=== PATIENT | female | born 1965 | race Caucasian/White ===

== ENCOUNTER 2016-10-02 18:26 | Emergency (ER) | payer OTHER, MEDICAID ==
[2016-10-02 18:33] VITALS: BP 121/83
[2016-10-02] MEDS ORDERED: ACETAMINOPHEN 325 MG TABLET PO ONE (18:36)
--- NOTE | 2016-10-02 18:38 | ER Document Report ---
ED Medical Screen (RME) - General Chief Complaint: Hand Pain Stated Complaint: FINGER PAIN Time seen by provider: 18:34 Mode of Arrival: Ambulatory Information source: Patient Notes: 50 yo female presents to ed for pain in left middle finger will not stay in place. Jammed finger when fussing with the dog. States she put the finger back in the socket and it will not stay. - HPI Onset: This afternoon Onset/Duration: Sudden Quality of pain: Throbbing Severity: Moderate Pain Level: 4 Associated Symptoms: Other - finger Exacerbated by: Movement Relieved by: Denies Similar symptoms previously: No Recently seen / treated by doctor: No - Related Data Smoking: Non-smoker, Quit greater than 1 year Frequency of alcohol use: Occasional Drug Abuse: None Physical Exam - Vital signs Vitals: Temp Pulse Resp BP Pulse Ox 97.9 F 95 16 121/83 98 10/02/16 18:31 10/02/16 18:31 10/02/16 18:31 10/02/16 18:31 10/02/16 18:31 Course - Vital Signs Vital signs: Temp Pulse Resp BP Pulse Ox 97.9 F 95 16 121/83 98 10/02/16 18:31 10/02/16 18:31 10/02/16 18:31 10/02/16 18:31 10/02/16 18:31
--- NOTE | 2016-10-02 19:22 | ER Document Report ---
ED Hand/Wrist Injury - General Chief Complaint: Finger Injury Stated Complaint: FINGER PAIN Mode of Arrival: Ambulatory Information source: Patient Notes: 50-year-old female presents to the emergency department complaining of left third finger pain and swelling. Patient reports was attempting to grab her dog by the collar when she hyperextended her finger and felt like it popped out of place. States she pulled her finger back into place. Reports localized swelling to mid left 3rd finger. Denies numbness or tingling. 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 TRAVEL OUTSIDE OF THE [place] IN LAST 30 DAYS: No - HPI Injury to: Middle finger Onset: This evening Where: Home Timing: Still present Quality of pain: Achy Severity: Mild Pain Level: 2 - Related Data Allergies/Adverse Reactions: No Known Allergies Allergy (Unverified 10/02/16 18:39) Home Medications: Current Home Medications Albuterol Sulfate [Proair Hfa Inhalation Aerosol 8.5 gm Mdi] 200 puff IH Q4H PRN 10/02/16 [History] Fluticasone/Salmeterol [Advair 250-50 Diskus 28 dose] 10/02/16 [History] Past Medical History - General Information source: Patient - Social History Smoking Status: Never Smoker Chew tobacco use (# tins/day): No Frequency of alcohol use: Occasional Drug Abuse: None Lives with: Family Family History: Reviewed & Not Pertinent Patient has suicidal ideation: No Patient has homicidal ideation: No - Medical History Medical History: Negative Surgical Hx: Negative - Immunizations Hx Diphtheria, Pertussis, Tetanus Vaccination: Yes - 5 years Review of Systems - Review of Systems Constitutional: No symptoms reported EENT: No symptoms reported Cardiovascular: No symptoms reported Respiratory: No symptoms reported Gastrointestinal: No symptoms reported Genitourinary: No symptoms reported Female Genitourinary: No symptoms reported Musculoskeletal: See HPI Skin: No symptoms reported Hematologic/Lymphatic: No symptoms reported Neurological/Psychological: No symptoms reported -: Yes All other systems reviewed and negative Physical Exam - Vital signs Vitals: Temp Pulse Resp BP Pulse Ox 97.9 F 95 16 121/83 98 10/02/16 18:31 10/02/16 18:31 10/02/16 18:31 10/02/16 18:31 10/02/16 18:31 Interpretation: Normal - General General appearance: Appears well, Alert In distress: None - HEENT Head: Normocephalic, Atraumatic Eyes: Normal Pupils: PERRL - Respiratory Respiratory status: No respiratory distress Chest status: Nontender Breath sounds: Normal Chest palpation: Normal - Cardiovascular Rhythm: Regular Heart sounds: Normal auscultation Murmur: No Pulses: Normal: Radial Normal capillary refill: Yes - Back Back: Normal, Nontender - Extremities General upper extremity: Normal inspection, Nontender, Normal color, Normal ROM , Normal strength, Normal temperature. No: Tender, Edema General lower extremity: Normal inspection, Nontender, Normal color, Normal ROM , Normal strength, Normal temperature, Normal weight bearing. No: Tender, Edema Shoulder: Normal, Nontender Arm: Normal, Nontender Elbow: Normal, Nontender Forearm: Normal, Nontender Wrist: Normal, Nontender Hand: Tender - tenderness with palpation to left 3rd finger and mild localized swelling and bruising near pip joint. full but painful ROM. neurovascular function intact., Ecchymosis, Swelling. No: Normal, Nontender, Abrasion, Deformity, Dislocation, Instability, Laceration, Nail injury, No evidence of human bite, No evidence of FB, Tendon deficit, Other - Neurological Neuro grossly intact: Yes Cognition: Normal Orientation: AAOx4 Estephania Coma Scale Eye Opening: Spontaneous [place] Coma Scale Verbal: Oriented [place] Coma Scale Motor: Obeys Commands [place] Coma Scale Total: 15 Speech: Normal Motor strength normal: LUE, RUE, LLE, RLE Sensory: Normal - Psychological Associated symptoms: Normal affect, Normal mood - Skin Skin Temperature: Warm Skin Moisture: Dry Skin Color: Normal Course - Re-evaluation Re-evalutation: 10/02/16 19:35 Pt hemodynamically stable, in no distress. Xray negative for fracture or dislocation. Neurovascular function intact. Pt already had finger splint in place from home. 3rd finger behzad taped to 4th. Home care, follow-up with pcp, and ED return precautions discussed with patient who verbalized understanding and agrees with plan. - Vital Signs Vital signs: Temp Pulse Resp BP Pulse Ox 97.9 F 95 16 121/83 98 10/02/16 18:31 10/02/16 18:31 10/02/16 18:31 10/02/16 18:31 10/02/16 18:31 - Diagnostic Test Radiology reviewed: Image reviewed, Reports reviewed Procedures - Immobilization Left Finger 3rd digit Time completed: 19:35 Pre-Proc Neuro Vasc Exam: Normal Immobilizer type: Other - behzad tape Performed by: RN, PCT Post-Proc Neuro Vasc Exam: Normal Alignment checked and good: Yes Discharge - Discharge Clinical Impression: Finger sprain Qualifiers: Encounter type: initial encounter Qualified Code(s): S63.619A - Unspecified sprain of unspecified finger, initial encounter Condition: Stable Disposition: HOME, SELF-CARE Instructions: Behzad Taping (fingers) ([facility]), Sprained Finger ([facility]), Finger Dislocation ([facility]), Ice & Elevation ([facility]), Anti-Inflammatory Medication ([facility]) Additional Instructions: Follow-up with your primary care provider within the next week. Return to the emergency department for any worsening symptoms or concerns. Prescriptions: Naproxen [Naprosyn 375 Mg Tablet] 375 mg PO BIDP PRN #10 tablet PRN Reason:
== END 2016-10-02 19:33 | disposition home or self-care (01) ==
LOC: ER 18:26
DX: S63.619A Unspecified sprain of unspecified finger, initial encounter (principal); X50.0XXA Overexertion from strenuous movement or load, initial encounter; Y92.009 Unspecified place in unspecified non-institutional (private) residence as the place of occurrence of the external cause
CPT/HCPCS: 99283

== ENCOUNTER → 2018-11-09 | Outpatient (CLI) | payer MEDICAID ==
[2018-11-09 12:57] LABS: ABSOLUTE EOSINOPHILS # (AUTO) 0.1 10^3/uL (0.0-0.6); ABSOLUTE LYMPHOCYTES (AUTO) 1.6 10^3/uL (0.5-4.7); ABSOLUTE MONOCYTES (AUTO) 0.6 10^3/uL (0.1-1.4); ABSOLUTE NEUT (AUTO) 7.5 10^3/uL (1.7-8.2); BASOPHILS % (AUTO) 0.2 % (0-2); EOSINOPHILS % (AUTO) 1.4 % (0-6); HEMATOCRIT 41.1 % (36.0-47.0); HEMOGLOBIN 13.9 g/dL (12.0-15.5); LYMPHOCYTES % (AUTO) 16.4 % (13-45); MEAN CORPUSCULAR HEMOGLOBIN 31.7 pg (27.0-33.4); MEAN CORPUSCULAR HGB CONC 33.8 g/dL (32.0-36.0); MEAN CORPUSCULAR VOLUME 94 fl (80-97); MONOCYTES % (AUTO) 5.8 % (3-13); PLATELET COUNT 279 10^3/uL (150-450); RED BLOOD COUNT 4.38 10^6/uL (3.72-5.28); RED CELL DISTRIBUTION WIDTH 13.9 % (11.5-14.0); SEGMENTED NEUTROPHILS % (AUTO) 76.2 % (42-78); TOTAL CELLS COUNTED % (AUTO) 100 %; WHITE BLOOD COUNT 9.8 10^3/uL (4.0-10.5)
[2018-11-09 13:17] LABS: ALANINE AMINOTRANSFERASE 14 U/L (9-52); ALBUMIN 4.3 g/dL (3.5-5.0); ALKALINE PHOSPHATASE 81 U/L (38-126); ANION GAP 10 (5-19); ASPARTATE AMINO TRANSFERASE 13 U/L (14-36); BILIRUBIN,DIRECT 0.1 mg/dL (0.0-0.4); BILIRUBIN,TOTAL 0.5 mg/dL (0.2-1.3); BLOOD UREA NITROGEN 9 mg/dL (7-20); CALCIUM 9.7 mg/dL (8.4-10.2); CARBON DIOXIDE 26 mmol/L (22-30); CHLORIDE 106 mmol/L (98-107); GLUCOSE 83 mg/dL (75-110); POTASSIUM 4.2 mmol/L (3.6-5.0); SODIUM 141.8 mmol/L (137-145); TOTAL PROTEIN 6.8 g/dL (6.3-8.2)
== END ==
LOC: OD 12:02
PROVIDERS: ATTEND Nurse Practitioner Acute Care
DX: E56.9 Vitamin deficiency, unspecified (principal); F32.9 Major depressive disorder, single episode, unspecified; Z79.899 Other long term (current) drug therapy
CPT/HCPCS: 36415; 80053; 82306; 84443; 85025

== ENCOUNTER → 2020-06-05 | Outpatient (CLI) | payer MEDICAID ==
[2020-06-05 14:16] LABS: ABSOLUTE EOSINOPHILS # (AUTO) 0.2 10^3/uL (0.0-0.6); ABSOLUTE LYMPHOCYTES (AUTO) 1.7 10^3/uL (0.5-4.7); ABSOLUTE MONOCYTES (AUTO) 0.6 10^3/uL (0.1-1.4); BASOPHILS % (AUTO) 0.3 % (0-2); HEMATOCRIT 37.9 % (36.0-47.0); HEMOGLOBIN 12.7 g/dL (12.0-15.5); LYMPHOCYTES % (AUTO) 19.6 % (13-45); MEAN CORPUSCULAR HEMOGLOBIN 31.4 pg (27.0-33.4); MEAN CORPUSCULAR HGB CONC 33.6 g/dL (32.0-36.0); MEAN CORPUSCULAR VOLUME 94 fl (80-97); MONOCYTES % (AUTO) 7.1 % (3-13); PLATELET COUNT 267 10^3/uL (150-450); RED BLOOD COUNT 4.05 10^6/uL (3.72-5.28); TOTAL CELLS COUNTED % (AUTO) 100 %; WHITE BLOOD COUNT 8.5 10^3/uL (4.0-10.5)
--- NOTE | 2020-06-05 14:45 | RADIOLOGY REPORT (SQ) ---
EXAM DESCRIPTION: CHEST PA/LATERAL IMAGES COMPLETED DATE/TIME: 06/05/2020 1:56 pm REASON FOR STUDY: ATRIAL TACHYCARDIA COMPARISON: None. EXAM PARAMETERS: NUMBER OF VIEWS: two views TECHNIQUE: Digital Frontal and Lateral radiographic views of the chest acquired. RADIATION DOSE: NA LIMITATIONS: none FINDINGS: LUNGS AND PLEURA: No opacities, masses or pneumothorax. No pleural effusion. MEDIASTINUM AND HILAR STRUCTURES: No masses or contour abnormalities. HEART AND VASCULAR STRUCTURES: Heart normal size. No evidence for failure. BONES: No acute findings. HARDWARE: None in the chest. OTHER: No other significant finding. IMPRESSION: NO SIGNIFICANT RADIOGRAPHIC FINDING IN THE CHEST. TECHNICAL DOCUMENTATION: JOB ID: [id number] 2010 [employer]- All Rights Reserved Reading location - IP/workstation name: [email or web address]
--- NOTE | 2020-06-06 09:40 | EKG REPORT ---
SEVERITY:- ABNORMAL ECG - ATRIAL FIBRILLATION, V-RATE 87-149 BORDERLINE PROLONGED QT INTERVAL : Confirmed by: Gamal Newman MD 06-Jun-2020 09:39:58
== END ==
LOC: OD 12:56
PROVIDERS: ATTEND Internal Medicine Pulmonary Disease
DX: I47.1 Supraventricular tachycardia (principal); R06.09 Other forms of dyspnea
CPT/HCPCS: 36415; 71046; 85025; 93005; 93010

== ENCOUNTER 2020-06-14 10:01 | Observation (INO) | payer MEDICAID ==
[2020-06-14] MEDS ORDERED: NORMAL SALINE 1000 ML 1,000 ML IV ONE (10:23)
[2020-06-14] MEDS ORDERED: DILTIAZEM HCL INJ 25 MG/5 ML VIAL IV ONE (10:44)
[2020-06-14] MEDS ORDERED: DILTIAZEM HCL/D5W 125 MG/125 ML RTUINJ IV PRN ×2 (10:44→13:08)
--- NOTE | 2020-06-14 10:44 | ER Document Report ---
Entered by MIMI PERRY SCRIBE 06/14/20 1018 Acting as scribe for:REJI TELLO MD ED Cardiac - General Chief Complaint: Palpitations Stated Complaint: HEART PALPITATIONS Time Seen by Provider: 06/14/20 10:11 Primary Care Provider: RAYMUNDO KRISHNAMURTHY MD [Primary Care Provider] - Follow up as needed Mode of Arrival: Wheelchair Information source: Patient Notes: This 54 year old female patient with known A fib presents to the ED today with complaints of palpitations that started just prior to arrival while at her solution designer's office. Patient states that she was sent by her solution designer Dr. Stan Hagen at [facility] because her EKG showed A fib with RVR. Patient had an outpatient EKG done on 06/05 that showed A fib, but the patient states that she was not started on any medications at that time. She denies chest pain or s hortness of breath. TRAVEL OUTSIDE OF THE [place] IN LAST 30 DAYS: No - Related Data Allergies/Adverse Reactions: No Known Allergies Allergy (Unverified 10/02/16 18:39) Past Medical History - General Information source: Patient - Social History Smoking Status: Never Smoker Cigarette use (# per day): No Chew tobacco use (# tins/day): No Smoking Education Provided: No Frequency of alcohol use: Rare Drug Abuse: None Lives with: Family Family History: Reviewed & Not Pertinent Patient has suicidal ideation: No Patient has homicidal ideation: No - Past Medical History Cardiac Medical History: Reports: Hx Atrial Fibrillation Pulmonary Medical History: Reports: Hx Asthma Past Surgical History: Reports: Hx Orthopedic Surgery - Left ankle ORIF - Immunizations Hx Diphtheria, Pertussis, Tetanus Vaccination: Yes - 5 years Review of Systems - Review of Systems Constitutional: No symptoms reported EENT: No symptoms reported Cardiovascular: See HPI, Palpitations. denies: Chest pain Respiratory: See HPI. denies: Short of breath Gastrointestinal: No symptoms reported Genitourinary: No symptoms reported Female Genitourinary: No symptoms reported Musculoskeletal: No symptoms reported Skin: No symptoms reported Hematologic/Lymphatic: No symptoms reported Neurological/Psychological: No symptoms reported -: Yes All other systems reviewed and negative Physical Exam - Vital signs Vitals: Resp Pulse Ox 11 L 100 06/14/20 10:23 06/14/20 10:23 - General General appearance: Appears well, Alert In distress: None - HEENT Head: Normocephalic, Atraumatic Eyes: Normal Pupils: PERRL - Respiratory Respiratory status: No respiratory distress Chest status: Nontender Breath sounds: Normal Chest palpation: Normal - Cardiovascular Rhythm: Irregularly irregular, Tachycardia Heart sounds: Normal auscultation Murmur: No Friction rub: No Gallop: None auscultated - Abdominal Inspection: Normal Distension: No distension Bowel sounds: Normal Tenderness: Nontender - Abdomen soft Organomegaly: No organomegaly - Back Back: Normal, Nontender - Extremities General upper extremity: Normal inspection General lower extremity: Normal inspection. No: Edema - Neurological Neuro grossly intact: Yes Orientation: AAOx4 Estephania Coma Scale Eye Opening: Spontaneous [place] Coma Scale Verbal: Oriented [place] Coma Scale Motor: Obeys Commands [place] Coma Scale Total: 15 - Psychological Associated symptoms: Normal affect, Normal mood - Skin Skin Temperature: Warm Skin Moisture: Dry Skin Color: Normal Course - Vital Signs Vital signs: Temp Pulse Resp BP Pulse Ox 29 H 112/85 96 06/14/20 12:31 06/14/20 12:31 06/14/20 12:31 - Laboratory Result Diagrams: 06/14/20 10:20 06/14/20 10:20 Laboratory results interpreted by me: 06/14/20 06/14/20 06/14/20 10:20 10:20 10:20 WBC 12.0 H RDW 14.3 H Lymph % (Auto) 12.5 L Absolute Neuts (auto) 9.4 H Seg Neutrophils % 78.7 H Chloride 108 H Glucose 113 H TSH 5.65 H - EKG Interpretation by Pr EKG shows normal: [place], Intervals, QRS Complexes, ST-T Waves Rate: Tachycardia - 150 Rhythm: A.Fib When compared to previous EKG there are: No significant change - Consults Rochelle Mann NP Time consulted: 12:45 Consulted provider: will come to ER Discharge - Discharge Clinical Impression: Atrial fibrillation with RVR Condition: Stable Disposition: ADMITTED OBSERVATION Admitting Provider: Zeke (Hospitalist) - Rochelle Mann ELECTRONIC WIRER will be seeing the patient and writing orders. Unit Admitted: IMCU Referrals: RAYMUNDO KRISHNAMURTHY MD [Primary Care Provider] - Follow up as needed I personally performed the services described in the documentation, reviewed and edited the documentation which was dictated to the scribe in my presence, and it accurately records my words and actions.
[2020-06-14 10:47] LABS: ABSOLUTE EOSINOPHILS # (AUTO) 0.1 10^3/uL (0.0-0.6); ABSOLUTE LYMPHOCYTES (AUTO) 1.5 10^3/uL (0.5-4.7); ABSOLUTE NEUT (AUTO) 9.4 10^3/uL (1.7-8.2); BASOPHILS % (AUTO) 0.2 % (0-2); EOSINOPHILS % (AUTO) 0.6 % (0-6); HEMATOCRIT 41.5 % (36.0-47.0); HEMOGLOBIN 13.6 g/dL (12.0-15.5); LYMPHOCYTES % (AUTO) 12.5 % (13-45); MEAN CORPUSCULAR HEMOGLOBIN 30.5 pg (27.0-33.4); MEAN CORPUSCULAR HGB CONC 32.8 g/dL (32.0-36.0); MEAN CORPUSCULAR VOLUME 93 fl (80-97); PLATELET COUNT 307 10^3/uL (150-450); RED BLOOD COUNT 4.45 10^6/uL (3.72-5.28); RED CELL DISTRIBUTION WIDTH 14.3 % (11.5-14.0); SEGMENTED NEUTROPHILS % (AUTO) 78.7 % (42-78); TOTAL CELLS COUNTED % (AUTO) 100 %
[2020-06-14 10:53] LABS: INTERNATIONAL RATION (INR) 1.04; PROTHROMBIN TIME 13.8 SEC (11.4-15.4)
[2020-06-14 11:19] LABS: ALBUMIN 4.3 g/dL (3.5-5.0); ALKALINE PHOSPHATASE 91 U/L (38-126); ANION GAP 9 (5-19); ASPARTATE AMINO TRANSFERASE 21 U/L (14-36); BILIRUBIN,DIRECT 0.3 mg/dL (0.0-0.4); BILIRUBIN,TOTAL 0.7 mg/dL (0.2-1.3); BLOOD UREA NITROGEN 9 mg/dL (7-20); CALCIUM 9.5 mg/dL (8.4-10.2); CARBON DIOXIDE 23 mmol/L (22-30); CHLORIDE 108 mmol/L (98-107); CREATINE KINASE 47 U/L (30-135); GLUCOSE 113 mg/dL (75-110); POTASSIUM 4.1 mmol/L (3.6-5.0); TOTAL PROTEIN 7.5 g/dL (6.3-8.2)
[2020-06-14] MEDS ORDERED: MAG HYDROX/AL HYDROX/SIMETH SUSP 30 ML UDCUP PO PRN (13:01)
[2020-06-14] MEDS ORDERED: MAGNESIUM HYDROXIDE SUSP 30 ML UDCUP PO PRN (13:01)
[2020-06-14] MEDS ORDERED: ALBUTEROL SULFATE 0.083% NEB 2.5 MG/3 ML AMPUL NEB PRN (13:01)
[2020-06-14] MEDS ORDERED: ONDANSETRON HCL INJ/PF 4 MG/2 ML SDV IV PRN (13:01)
[2020-06-14 14:02] LABS: FREE T3 4.14 pg/mL (2.77-5.27); FREE T4 (FREE THYROXINE) 0.93 ng/dL (0.78-2.19)
--- NOTE | 2020-06-14 18:28 | EKG REPORT ---
SEVERITY:- ABNORMAL ECG - ATRIAL FIBRILLATION, V-RATE 107-188 : Confirmed by: Humera Saleh 14-Jun-2020 18:28:04
[2020-06-14] MEDS: ENOXAPARIN SODIUM INJ 80 MG/0.8 ML DISP.SYRIN SUBCUT SCH (18:36)
[2020-06-14] MEDS: DILTIAZEM HCL 30 MG TABLET PO SCH (18:39)
[2020-06-14] MEDS ORDERED: LEVALBUTEROL HCL NEB 1.25 MG/3 ML AMPUL NEB PRN (18:54)
--- NOTE | 2020-06-14 19:07 | PDOC H&P ---
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 fib RVR. Patient had been referred to cardiology for a. fib noted on routine EKG while at her PCPs. She reports that she has been entire rhythm unaware; however, s/o reports that patient has complained of feeling "unwell" with increased complaint of dyspnea and albuterol MDI use. Evaluation in the ED revealed a. fib RVR with HR of 140 and hypotension on presentation; otherwise stable vital signs. She was noted to have mild leukocytosis (WBC 12), nml PT/INR, and unremarkable chemistry. Troponin is nml. TSH slightly elevated to 5.65, however, T3 and T4 are normal. She was provided IV fluids and placed on a diltiazem gtt with improvement in HR and BP. She is referred to the hospitalist service for further evaluation and management. Past Medical History Cardiac Medical History: Reports: Atrial Fibrillation Denies: Hyperlipidema, Hypertension Pulmonary Medical History: Reports: Asthma Denies: Chronic Obstructive Pulmonary Disease (COPD), Respiratory Failure EENT Medical History: Reports: None Neurological Medical History: Reports: None Endocrine Medical History: Reports: None Renal/ Medical History: Reports: None Malignancy Medical History: Reports: None GI Medical History: Reports: Gastroesophageal Reflux Disease Musculoskeltal Medical History: Reports: None Skin Medical History: Reports: None Psychiatric Medical History: Reports: None, Depression Traumatic Medical History: Reports: None Hematology: Reports: None Infectious Medical History: Reports: None Past Surgical History Past Surgical History: Reports: Orthopedic Surgery - Left ankle ORIF Social History Information Source: Patient Lives with: Family Smoking Status: Never Smoker Electronic Cigarette use?: No Frequency of Alcohol Use: Rare Hx Recreational Drug Use: No Drugs: None - Advance Directive Resuscitation Status: Full Code Family History Family History: Reviewed & Not Pertinent, CAD, Malignancy Parental Family History Reviewed: Yes Children Family History Reviewed: Yes Sibling(s) Family History Reviewed.: Yes Medication/Allergy Home Medications: Alprazolam [Xanax 0.25 mg Tablet] 0.25 mg PO BIDP PRN 06/14/20 Famotidine [Acid Controller] 20 mg PO DAILYP PRN 06/14/20 Fluoxetine HCl 10 mg PO ASDIR PRN 06/14/20 Metoclopramide HCl 5 mg PO QIDP PRN 06/14/20 Montelukast Sodium [Singulair 10 mg Tablet] 10 mg PO QHS 06/14/20 Omeprazole 20 mg PO DAILY 06/14/20 Allergies/Adverse Reactions: No Known Allergies Allergy (Unverified 10/02/16 18:39) Review of Systems Constitutional: ABSENT: chills, fever(s), headache(s), weight gain, weight loss Eyes: ABSENT: visual disturbances Ears: ABSENT: hearing changes Cardiovascular: ABSENT: chest pain, dyspnea on exertion, edema, orthropnea, palpitations Respiratory: PRESENT: dyspnea. ABSENT: cough, hemoptysis Gastrointestinal: ABSENT: abdominal pain, constipation, diarrhea, hematemesis, hematochezia, nausea, vomiting Genitourinary: ABSENT: dysuria, hematuria Musculoskeletal: ABSENT: joint swelling Integumentary: ABSENT: rash, wounds Neurological: ABSENT: abnormal gait, abnormal speech, confusion, dizziness, focal weakness, syncope Psychiatric: ABSENT: anxiety, depression, homidical ideation, suicidal ideation Endocrine: ABSENT: cold intolerance, heat intolerance, polydipsia, polyuria Hematologic/Lymphatic: ABSENT: easy bleeding, easy bruising Physical Exam Vital Signs: Temp Pulse Resp BP Pulse Ox 100 19 117/62 98 06/14/20 16:40 06/14/20 15:30 06/14/20 17:41 06/14/20 15:30 Intake & Output 06/13/20 06/14/20 06/15/20 06:59 06:59 06:59 Intake Total 1013 Balance 1013 Weight 72.575 kg General appearance: PRESENT: no acute distress, cooperative, well-developed, well-nourished Head exam: PRESENT: atraumatic, normocephalic Eye exam: PRESENT: conjunctiva pink, EOMI, PERRLA. ABSENT: scleral icterus Ear exam: PRESENT: normal external ear exam Mouth exam: PRESENT: moist, tongue midline Neck exam: ABSENT: carotid bruit, JVD, lymphadenopathy, thyromegaly Respiratory exam: PRESENT: clear to auscultation vignesh, symmetrical, unlabored. ABSENT: rales, rhonchi, wheezes Cardiovascular exam: PRESENT: irregular rhythm, +S1, +S2. ABSENT: diastolic murmur, rubs, systolic murmur Pulses: PRESENT: normal dorsalis pedis pul Vascular exam: PRESENT: normal capillary refill Extremities exam: PRESENT: joint swelling - left knee w/ tenderness. ABSENT: calf tenderness, clubbing, pedal edema Neurological exam: PRESENT: alert, awake, oriented to person, oriented to place, oriented to time, oriented to situation, CN II-XII grossly intact. ABSENT: motor sensory deficit Psychiatric exam: PRESENT: appropriate affect, normal mood. ABSENT: homicidal ideation, suicidal ideation Skin exam: PRESENT: dry, intact, warm. ABSENT: cyanosis, rash Results Laboratory Results: 06/14/20 10:20 06/14/20 10:20 06/14/20 06/14/20 06/14/20 10:20 10:20 10:20 WBC 12.0 H RBC 4.45 Hgb 13.6 Hct 41.5 MCV 93 MCH 30.5 MCHC 32.8 RDW 14.3 H Plt Count 307 Seg Neutrophils % 78.7 H Sodium 140.0 Potassium 4.1 Chloride 108 H Carbon Dioxide 23 Anion Gap 9 BUN 9 Creatinine 0.53 Est GFR ( Amer) > 60 Glucose 113 H Calcium 9.5 Magnesium 1.9 Total Bilirubin 0.7 AST 21 Alkaline Phosphatase 91 Total Protein 7.5 Albumin 4.3 TSH 5.65 H Free T4 Free T3 pg/mL 06/14/20 10:20 WBC RBC Hgb Hct MCV MCH MCHC RDW Plt Count Seg Neutrophils % Sodium Potassium Chloride Carbon Dioxide Anion Gap BUN Creatinine Est GFR ( Amer) Glucose Calcium Magnesium Total Bilirubin AST Alkaline Phosphatase Total Protein Albumin TSH Free T4 0.93 Free T3 pg/mL 4.14 06/14/20 06/14/20 10:20 10:20 Creatine Kinase 47 Troponin I < 0.012 Assessment and Plan - Diagnosis (1) Atrial fibrillation with RVR Is this a current diagnosis for this admission?: Yes Plan: Patient is admitted to [facility] on continuous cardiac telemetry. She is placed on full dose Lovenox. Continue diltiazem; titrate per [facility] protocol. Start oral diltiazem 30 mg p.o. every 6 hours. EKG in the morning. Consider cardiology consultation. (2) Swelling of knee joint, left Is this a current diagnosis for this admission?: Yes Plan: Patient reports that she stumbled over a tree stump approximately 1 week ago resulting in immediate knee discomfort and swelling. She does report decreased range of motion due to pain. Obtain plain film. Orthopedic consult. Analgesics as needed. (3) Elevated TSH Is this a current diagnosis for this admission?: Yes Plan: TSH is slightly elevated. Follow-up T3/T4 are normal. (4) Leukocytosis Is this a current diagnosis for this admission?: Yes Plan: Unclear etiology. Patient is afebrile. No s/sx of infectious process. No indications for abx at this time. Follow labs. - Time Time Spent with patient: 35 or more minutes Medications reviewed and adjusted accordingly: Yes Anticipated Discharge Disposition: Home, Self Care Anticipated Discharge Timeframe: within 48 hours
[2020-06-14] MEDS: IBUPROFEN 600 MG TABLET PO PRN (20:33)
--- NOTE | 2020-06-14 20:44 | RADIOLOGY REPORT (SQ) ---
EXAM DESCRIPTION: X-ray, two views of the left knee CLINICAL HISTORY: 54 years Female, pain, swelling COMPARISON: None. FINDINGS: Chondrocalcinosis is seen in both the medial and lateral compartments. Large knee effusion is present. Joint spaces preserved. No acute fracture is identified. Well-corticated ossific density is seen lateral to the lateral femoral condyle may represent old trauma. IMPRESSION: Knee effusion. Chondrocalcinosis and probable old trauma with old Segond fracture.
[2020-06-14] MEDS: FAMOTIDINE 20 MG TABLET PO SCH (21:33)
[2020-06-14] MEDS: ACETAMINOPHEN 325 MG TABLET PO PRN (21:40)
[2020-06-15] MEDS: DILTIAZEM HCL 30 MG TABLET PO SCH ×4 (00:31→17:40)
[2020-06-15 06:02] LABS: HEMATOCRIT 34.2 % (36.0-47.0); MEAN CORPUSCULAR HEMOGLOBIN 30.9 pg (27.0-33.4); MEAN CORPUSCULAR HGB CONC 33.6 g/dL (32.0-36.0); MEAN CORPUSCULAR VOLUME 92 fl (80-97); PLATELET COUNT 224 10^3/uL (150-450); RED BLOOD COUNT 3.72 10^6/uL (3.72-5.28); RED CELL DISTRIBUTION WIDTH 14.2 % (11.5-14.0)
[2020-06-15 06:14] LABS: HEMOGLOBIN 11.5 g/dL (12.0-15.5)
[2020-06-15 06:24] LABS: ANION GAP 7 (5-19); BLOOD UREA NITROGEN 6 mg/dL (7-20); CALCIUM 8.9 mg/dL (8.4-10.2); CARBON DIOXIDE 21 mmol/L (22-30); CHLORIDE 109 mmol/L (98-107); GLUCOSE 98 mg/dL (75-110); POTASSIUM 3.7 mmol/L (3.6-5.0)
[2020-06-15] MEDS: ENOXAPARIN SODIUM INJ 80 MG/0.8 ML DISP.SYRIN SUBCUT SCH (06:45)
--- NOTE | 2020-06-15 07:21 | EKG REPORT ---
SEVERITY:- ABNORMAL ECG - ATRIAL FIBRILLATION, V-RATE 71-101 : Confirmed by: Humera Saleh 15-Jun-2020 07:19:49
[2020-06-15] MEDS: FAMOTIDINE 20 MG TABLET PO SCH (09:41)
[2020-06-15] MEDS ORDERED: FLUTICASONE/VILANTEROL 100-25 MCG/DOSE IH SCH (10:00)
[2020-06-15] MEDS ORDERED: DOCUSATE SODIUM 100 MG CAPSULE PO SCH (10:00)
[2020-06-15] MEDS ORDERED: HYDROCODONE/ACETAMINOPHEN 5-325 MG TABLET PO PRN (11:49)
[2020-06-15] MEDS ORDERED: ZOLPIDEM TARTRATE 5 MG TABLET PO PRN (11:49)
[2020-06-15] MEDS: ACETAMINOPHEN 325 MG TABLET PO PRN (14:19)
[2020-06-15] MEDS: IBUPROFEN 600 MG TABLET PO PRN (14:19)
[2020-06-15 17:00] VITALS: BP 116/73
[2020-06-15] MEDS ORDERED: APIXABAN 5 MG TABLET PO SCH (18:00)
--- NOTE | 2020-06-16 18:52 | PDOC DISCHARGE SUMMARY ---
Impression - Admit/DC Date/PCP Admission Date/Primary Care Provider: 06/14/20 13:01 Discharge Date: 06/15/20 - Discharge Diagnosis (1) Atrial fibrillation with RVR Is this a current diagnosis for this admission?: Yes (2) Swelling of knee joint, left Is this a current diagnosis for this admission?: Yes (3) Elevated TSH Is this a current diagnosis for this admission?: Yes (4) Leukocytosis Is this a current diagnosis for this admission?: Yes - Additional Information Resuscitation Status: Full Code Discharge Diet: Cardiac Discharge Activity: Activity As Tolerated, Balance Activity w/Rest Referrals: RAYMUNDO KRISHNAMURTHY MD [ACTIVE PROVISIONAL STAFF] - Follow up as needed ERIK JC MD [ACTIVE STAFF] - 06/26/20 11:30 am (follow up in 7-10 days) SAMANTHA DE LA O NP [ALLIED HEALTH PROFESSIONAL] - TRUDY HAINES MD [ACTIVE PROVISIONAL STAFF] - 06/19/20 10:30 am (within 1 week) Prescriptions: Diltiazem HCl [Diltiazem 12Hr ER] 60 mg PO Q12 #60 cap.er.12h Apixaban [Eliquis 5 mg Tablet] 5 mg PO BID #60 tablet Hydrocodone/Acetaminophen [[place] 5-325 mg Tablet] 1 tab PO Q6HP PRN #12 tablet PRN Reason: Home Medications: Alprazolam [Xanax 0.25 mg Tablet] 0.25 mg PO BIDP PRN 06/14/20 Famotidine [Acid Controller] 20 mg PO DAILYP PRN 06/14/20 Fluoxetine HCl 10 mg PO ASDIR PRN 06/14/20 Metoclopramide HCl 5 mg PO QIDP PRN 06/14/20 Montelukast Sodium [Singulair 10 mg Tablet] 10 mg PO QHS 06/14/20 Omeprazole 20 mg PO DAILY 06/14/20 Apixaban [Eliquis 5 mg Tablet] 5 mg PO BID #60 tablet 06/15/20 Diltiazem HCl [Diltiazem 12Hr ER] 60 mg PO Q12 #60 cap.er.12h 06/15/20 Hydrocodone/Acetaminophen [[place] 5-325 mg Tablet] 1 tab PO Q6HP PRN #12 tablet 06/15/20 Ibuprofen [Motrin 600 mg Tablet] 600 mg PO Q6HP PRN tablet 06/15/20 History of Present Illiness History of Present Illness: ANDREW FIELDS is a 54 year old female with a past medical history significant for asthma and GERD who was sent from her [employer] Director office today for a. fib RVR. Patient had been referred to cardiology for a. fib noted on routine EKG while at her PCPs. She reports that she has been entire rhythm unaware; however, s/o reports that patient has complained of feeling "unwell" with increased complaint of dyspnea and albuterol MDI use. Evaluation in the ED revealed a. fib RVR with HR of 140 and hypotension on presentation; otherwise stable vital signs. She was noted to have mild leukocytosis (WBC 12), nml PT/INR, and unremarkable chemistry. Troponin is nml. TSH slightly elevated to 5.65, however, T3 and T4 are normal. She was provided IV fluids and placed on a diltiazem gtt with improvement in HR and BP. She is referred to the hospitalist service for further evaluation and management. Hospital Course Hospital Course: Patient was admitted to [facility] on continuous cardiac telemetry. She was placed on diltiazem drip and initiated on p.o. diltiazem. Rate control was rapidly achieved; she maintained atrial fibrillation with heart rate 70s to 80s with activity. Blood pressure acceptable. TSH was elevated at 5.65, however free T3 and T4 were appropriate. She was transitioned to p.o. diltiazem only and continue to maintain appropriate rate control. She is discharged home on continue diltiazem and Eliquis for chronic anticoagulation with recommendations to follow-up with her established showroom consultant within 1 to 2 weeks. ED patient reported left knee pain x1 week after tripping in the yard. She was noted to have mild edema into the joint. Imaging revealed a large effusion and a probable old trauma with Segond fracture. Patient denies prior history of knee injury. Spoke with Dr. Jc by phone; he did review imaging. Recommends conservative management at this time. May follow-up in the office in 1 week if pain persists for consideration of arthrocentesis and/or steroid injection. Patient is discharged home in stable condition. 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 Jc (as needed). Take medications as prescribed. Eat a heart healthy diet and avoid tobacco and alcohol use. Return to the emergency department as needed for concerning symptoms. Physical Exam Vital Signs: Temp Pulse Resp BP Pulse Ox 97.6 F 93 16 116/73 98 06/15/20 18:02 06/15/20 18:02 06/15/20 18:02 06/15/20 16:54 06/15/20 18:02 Intake & Output 06/15/20 06/16/20 06/17/20 06:59 06:59 06:59 Intake Total 1234 Balance 1234 Weight 77.5 kg General appearance: PRESENT: no acute distress, well-developed, well-nourished Head exam: PRESENT: atraumatic, normocephalic Eye exam: PRESENT: conjunctiva pink, EOMI, PERRLA. ABSENT: scleral icterus Ear exam: PRESENT: normal external ear exam Mouth exam: PRESENT: moist, tongue midline Neck exam: ABSENT: carotid bruit, JVD, lymphadenopathy, thyromegaly Respiratory exam: PRESENT: clear to auscultation vignesh. ABSENT: rales, rhonchi, wheezes Cardiovascular exam: PRESENT: RRR. ABSENT: diastolic murmur, rubs, systolic murmur Pulses: PRESENT: normal dorsalis pedis pul Vascular exam: PRESENT: normal capillary refill GI/Abdominal exam: PRESENT: normal bowel sounds, soft. ABSENT: distended, guarding, mass, organolmegaly, rebound, tenderness Rectal exam: PRESENT: deferred Extremities exam: PRESENT: full ROM. ABSENT: calf tenderness, clubbing, pedal edema Neurological exam: PRESENT: alert, awake, oriented to person, oriented to place, oriented to time, oriented to situation, CN II-XII grossly intact. ABSENT: motor sensory deficit Psychiatric exam: PRESENT: appropriate affect, normal mood. ABSENT: homicidal ideation, suicidal ideation Skin exam: PRESENT: dry, intact, warm. ABSENT: cyanosis, rash Results Laboratory Results: WBC 9.0 10^3/uL (4.0-10.5) 06/15/20 05:42 RBC 3.72 10^6/uL (3.72-5.28) 06/15/20 05:42 Hgb 11.5 g/dL (12.0-15.5) L D 06/15/20 05:42 Hct 34.2 % (36.0-47.0) L 06/15/20 05:42 MCV 92 fl (80-97) 06/15/20 05:42 MCH 30.9 pg (27.0-33.4) 06/15/20 05:42 MCHC 33.6 g/dL (32.0-36.0) 06/15/20 05:42 RDW 14.2 % (11.5-14.0) H 06/15/20 05:42 Plt Count 224 10^3/uL (150-450) 06/15/20 05:42 Lymph % (Auto) 12.5 % (13-45) L 06/14/20 10:20 [place] % (Auto) 8.0 % (3-13) 06/14/20 10:20 Eos % (Auto) 0.6 % (0-6) 06/14/20 10:20 Baso % (Auto) 0.2 % (0-2) 06/14/20 10:20 Absolute Neuts (auto) 9.4 10^3/uL (1.7-8.2) H 06/14/20 10:20 Absolute Lymphs (auto) 1.5 10^3/uL (0.5-4.7) 06/14/20 10:20 Absolute Monos (auto) 1.0 10^3/uL (0.1-1.4) 06/14/20 10:20 Absolute Eos (auto) 0.1 10^3/uL (0.0-0.6) 06/14/20 10:20 Absolute Basos (auto) 0.0 10^3/uL (0.0-0.2) 06/14/20 10:20 Seg Neutrophils % 78.7 % (42-78) H 06/14/20 10:20 PT 13.8 SEC (11.4-15.4) 06/14/20 10:20 INR 1.04 06/14/20 10:20 Sodium 137.0 mmol/L (137-145) 06/15/20 05:42 Potassium 3.7 mmol/L (3.6-5.0) 06/15/20 05:42 Chloride 109 mmol/L (98-107) H 06/15/20 05:42 Carbon Dioxide 21 mmol/L (22-30) L 06/15/20 05:42 Anion Gap 7 (5-19) 06/15/20 05:42 BUN 6 mg/dL (7-20) L 06/15/20 05:42 Creatinine 0.51 mg/dL (0.52-1.25) L 06/15/20 05:42 Est GFR ( Amer) > 60 (>60) 06/15/20 05:42 Est GFR (MDRD) Non-Af > 60 (>60) 06/15/20 05:42 Glucose 98 mg/dL (75-110) 06/15/20 05:42 Calcium 8.9 mg/dL (8.4-10.2) 06/15/20 05:42 Magnesium 1.9 mg/dL (1.6-2.3) 06/14/20 10:20 Total Bilirubin 0.7 mg/dL (0.2-1.3) 06/14/20 10:20 Direct Bilirubin 0.3 mg/dL (0.0-0.4) 06/14/20 10:20 Neonat Total Bilirubin Not Reportable 06/14/20 10:20 Neonat Direct Bilirubin Not Reportable 06/14/20 10:20 Neonat Indirect Bili Not Reportable 06/14/20 10:20 AST 21 U/L (14-36) 06/14/20 10:20 ALT 12 U/L (<35) 06/14/20 10:20 Alkaline Phosphatase 91 U/L (38-126) 06/14/20 10:20 Creatine Kinase 47 U/L (30-135) 06/14/20 10:20 Troponin I < 0.012 ng/mL 06/14/20 10:20 Total Protein 7.5 g/dL (6.3-8.2) 06/14/20 10:20 Albumin 4.3 g/dL (3.5-5.0) 06/14/20 10:20 TSH 5.65 uIU/mL (0.47-4.68) H 06/14/20 10:20 Free T4 0.93 ng/dL (0.78-2.19) 06/14/20 10:20 Free T3 pg/mL 4.14 pg/mL (2.77-5.27) 06/14/20 10:20 06/14/20 10:20 Troponin I < 0.012 Impressions: Knee X-Ray 06/14/20 00:00 IMPRESSION: Knee effusion. Chondrocalcinosis and probable old trauma with old Segond fracture. Plan Plan of Treatment: Patient is discharged home in stable condition. She is advised follow-up with her primary care provider within 1 week. Follow-up with Dr. Mehran Chirinos, established showroom consultant, within 1 to 2 weeks. Follow-up with Dr. Jc within 1 week as needed for persistent left knee pain. Follow-up with pulmonology as previously scheduled. Continue p.o. diltiazem and Eliquis. Eat a heart healthy diet. Avoid tobacco products and alcohol. Return to emergency department as needed for concerning symptoms. Time Spent: Greater than 30 Minutes Stroke Is this a Stroke Patient?: No Acute Heart Failure Is this a Heart Failure Patient?: No
== END 2020-06-15 19:00 | disposition home or self-care (01) ==
LOC: ER 10:01 → EH 13:01 → 3S 16:03
PROVIDERS: ADMIT Internal Medicine Pulmonary Disease; ATTEND Registered Nurse
DX: I48.91 Unspecified atrial fibrillation (principal); M25.462 Effusion, left knee; D72.829 Elevated white blood cell count, unspecified; R79.89 Other specified abnormal findings of blood chemistry; I95.9 Hypotension, unspecified; M25.562 Pain in left knee; M11.262 Other chondrocalcinosis, left knee; J45.909 Unspecified asthma, uncomplicated; R06.00 Dyspnea, unspecified; K21.9 Gastro-esophageal reflux disease without esophagitis; Z79.899 Other long term (current) drug therapy; Z82.49 Family history of ischemic heart disease and other diseases of the circulatory system
CPT/HCPCS: 93005 ×2; 99285; 96375; 96365; 96366; 36415 ×2; 84439; 82550; 83735; 84443; 85025; 85027; 85610; 80048; 80053; 84484; 84481; 73560; 93010 ×2; G0378 ×3; J3490 ×13; J7030; J1650 ×2